=== PATIENT | male | born 1940 | race Caucasian/White ===

== ENCOUNTER 2017-10-20 20:21 | Emergency (ER) | payer OTHER ==
[2017-10-20 20:21] VITALS: BMI 21.9
[2017-10-20 21:15] LABS: BASO % 0.4 % (0.0-2.0); EOS # 0.2 K/uL (0.0-0.7); EOS % 3.9 % (0.0-4.0); HEMOGLOBIN 13.2 g/dL (12.0-18.0); LYMPH # 1.2 K/uL (1.0-4.3); LYMPH % 27.7 % (20.0-40.0); MEAN CORPUSCULAR HEMOGLOBIN 35.2 pg (27.0-31.0); MEAN CORPUSCULAR HGB CONC 34.9 g/dL (33.0-37.0); MEAN PLATELET VOLUME 9.2 fL (7.2-11.7); MONO # 0.9 K/uL (0.0-0.8); MONO % 20.8 % (0.0-10.0); NEUT % 47.2 % (50.0-75.0); PLATELET COUNT 155 K/uL (130-400); RBC 3.75 Mil/uL (4.40-5.90); RED CELL DISTRIBUTION WIDTH 13.6 % (11.5-14.5); WHITE BLOOD COUNT 4.3 K/uL (4.8-10.8)
[2017-10-20 21:19] LABS: MEAN CELL VOLUME 100.6 fL (80.0-94.0)
--- NOTE | 2017-10-20 21:19 | C.PDOC ---
History Of Present Illness 77 year old male, whose PMHx includes HTN and Hyperlipidemia, presents to the ED for evaluation of headache associated with elevated blood pressure for the past week. Patient is due for evaluation by his PMD but has not been able to schedule an appointment. Patient denies any other complaints at this time. Time Seen by Provider: 10/20/17 20:31 Chief Complaint (Nursing): High Blood Pressure History Per: Patient History/Exam Limitations: no limitations Onset/Duration Of Symptoms: Other (1 week ) Current Symptoms Are (Timing): Still Present Associated Symptoms: Headache. denies: Chest Pain, Blurred Vision, Focal Weakness Additional History Per: Patient Past Medical History Reviewed: Historical Data, Nursing Documentation, Vital Signs Vital Signs: Last Vital Signs Temp 98.2 F 10/20/17 22:33 Pulse 56 L 10/20/17 22:33 Resp 18 10/20/17 22:33 BP 126/54 L 10/20/17 22:33 Pulse Ox 100 10/21/17 21:46 - Medical History PMH: Bronchitis, Colonic Polyps (RESECTED X 2), COPD, Hypercholesterolemia, Obstructive Bowel Denies: Chronic Kidney Disease Surgical History: Appendectomy, Cholecystectomy - [facility] Procedures ENDOSC POLYPECTOMY OF LG INTEST (11/14/13) Family History: States: Unknown Family Hx - Social History Hx Tobacco Use: No Hx Alcohol Use: No Hx Substance Use: No - Immunization History Hx Tetanus Toxoid Vaccination: No Hx Influenza Vaccination: Yes Hx Pneumococcal Vaccination: Yes Review Of Systems Cardiovascular: Negative for: Chest Pain Neurological: Positive for: Headache Physical Exam - Physical Exam Appears: Non-toxic, No Acute Distress Skin: Normal Color, Warm, Dry Head: Atraumatic, Normacephalic Eye(s): bilateral: Normal Inspection Oral Mucosa: Moist Neck: Supple Chest: Symmetrical, No Deformity, No Tenderness Cardiovascular: Rhythm Regular, No Murmur Respiratory: Normal Breath Sounds, No Rales, No Rhonchi, No Wheezing Extremity: Normal ROM, Capillary Refill (less than 2 seconds ) Neurological/Psych: Oriented x3, Normal Speech, Normal Cognition ED Course And Treatment - Laboratory Results Result Diagrams: 10/20/17 21:11 10/20/17 21:35 ECG: Interpreted By Me, Viewed By Me ECG Rhythm: Sinus Rhythm Interpretation Of ECG: Normal Sinus Rhythm at rate 70bpm. Rate From EC O2 Sat by Pulse Oximetry: 100 (on RA) Pulse Ox Interpretation: Normal Medical Decision Making Medical Decision Making: suspeceted essential htn. ro urgency vs emergency Progress: Bloodwork, urinalysis, CT Head, EKG orderd and reviewed. labs ct neg neuro itact [facility]. [facility] Disposition - Disposition Referrals: Abran Moreno MD [Staff Provider] - Disposition: HOME/ ROUTINE Disposition Time: 21:00 Condition: STABLE Additional Instructions: please follow up with your doctor. return to er with worsening symptoms or concerns. Instructions: Headache, Adult, High Blood Pressure (DC) Forms: [employer] ([place] [employer]) - Clinical Impression Clinical Impression: Headache, High blood pressure - Scribe Statement The provider has reviewed the documentation as recorded by the Scribe (Jonelle Cardona) Provider Attestation: All medical record entries made by the Scribe were at my direction and personally dictated by me. I have reviewed the chart and agree that the record accurately reflects my personal performance of the history, physical exam, medical decision making, and the department course for this patient. I have also personally directed, reviewed, and agree with the discharge instructions and disposition.
[2017-10-20 21:29] LABS: INR 1.1; PROTHROMBIN TIME 11.6 SECONDS (9.7-12.2)
--- NOTE | 2017-10-20 21:44 | CT ---
EXAM: CT Head Without Intravenous Contrast CLINICAL HISTORY: 77 years old, male; Condition or disease; Headache; Headache not specified; Additional info: [employer]AC[employer]EN TECHNIQUE: Axial computed tomography images of the head/brain without intravenous contrast. All CT scans at this facility use one or more dose reduction techniques, viz.: automated exposure control; ma/kV adjustment per patient size (including targeted exams where dose is matched to indication; i.e. head); or iterative reconstruction technique. COMPARISON: No relevant prior studies available. FINDINGS: Brain: [id number] atrophy. No intracranial hemorrhage. No mass. Few scattered foci of decreased attenuation within periventricular/subcortical white matter. 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 No definite edema. Ventricles: No hydrocephalus. Bones/joints: No acute fracture. Degenerative changes of temporomandibular joints. Soft tissues: Unremarkable. Vasculature: Atherosclerotic disease of intracranial arteries. Sinuses: Scattered minimal to mild mucosal thickening. Mastoid air cells: No mastoid effusion. Orbits: Unremarkable as visualized. IMPRESSION: 1. Nonspecific white matter changes. Acute infarction may be CT occult within first 24 hours. If a focal deficit persists, consider followup CT or MRI for further evaluation. 2. Incidental/non-acute findings are described above.
[2017-10-20 21:53] LABS: ALB/GLOB RATIO 1.2 (1.0-2.1); ALBUMIN 3.6 g/dL (3.5-5.0); ALT/SGPT 38 U/L (21-72); AST/SGOT 38 U/L (17-59); BLOOD UREA NITROGEN 38 mg/dL (9-20); CALCIUM 9.2 mg/dl (8.6-10.4); GFR AFRICAN-AMERICAN > 60; GFR NON-AFRICAN AMERICAN > 60
[2017-10-20 21:55] LABS: URINE BILIRUBIN NEGATIVE (NEGATIVE); URINE CLARITY Clear (Clear); URINE COLOR Yellow (YELLOW); URINE GLUCOSE (UA) NORMAL (Normal); URINE LEUKOCYTE ESTERASE NEG Leu/uL (Negative); URINE PROTEIN NEGATIVE (NEGATIVE); URINE UROBILINOGEN NORMAL mg/dL (0.2-1.0)
[2017-10-20 21:56] LABS: URINE BLOOD NEGATIVE (NEGATIVE)
[2017-10-20 22:33] LABS: BANDS 3 % (0-2); EOSINOPHIL 4 % (0-4); LYMPHOCYTE 27 % (20-40); METAMYELOCYTE 2 % (0-0); MICROCYTOSIS SLIGHT; MONOCYTE 19 % (0-10); MYELOCYTE 1 % (0-0); NEUTROPHIL 44 % (50-75); PLATELET ESTIMATE NORMAL (NORMAL); TOTAL CELLS COUNTED 100
[2017-10-20 22:34] VITALS: BP 126/54; PULSE 56; RESP 18; TEMP 98.2
[2017-10-20 22:35] LABS: LARGE PLATELETS PRESENT
--- NOTE | 2017-10-21 19:25 | CARD ---
APPROVED REPORT EKG Measurement Heart [id number] <Conclusion> Normal sinus rhythm Left axis deviation Incomplete right bundle branch block Septal infarct, age undetermined Abnormal ECG
[2017-10-21 21:47] VITALS: O2SAT 100
== END 2017-10-20 22:33 | disposition home or self-care (01) ==
LOC: C.ER 20:21
DX: I10 Essential (primary) hypertension (principal); R51 Headache; E78.00 Pure hypercholesterolemia, unspecified

== ENCOUNTER 2018-02-08 12:12 | Emergency (ER) | payer OTHER ==
[2018-02-08 12:12] VITALS: BMI 21.9
[2018-02-08 12:21] VITALS: BP 147/76; PULSE 87; RESP 18; TEMP 98.3; O2SAT 100
[2018-02-08] MEDS ORDERED: Bacitracin 500 Units/gm Oint Foilpak UD ONE (12:35)
[2018-02-08] MEDS ORDERED: Bacitracin Ointment 30 GM TUBE TOP STA (12:42)
[2018-02-08] MEDS ORDERED: Tetanus/Diphtheria Toxoids 0.5 ml Syringe IM ONE (12:42)
--- NOTE | 2018-02-08 12:48 | C.PDOC ---
History Of Present Illness 77 y/o male presents to the ED for evaluation of wound he got yesterday after he closed the closet door on his right forearm. Pt notes the latch on the door hit his arm. The patient is concerned about the bruising that seemed to increase today. He admits to taking aspirin. The patient denies any pain to the arm, bruising else where, weakness, numbness, tingling or bloody stool. Time Seen by Provider: 02/08/18 12:23 Chief Complaint (Nursing): Wound Check History Per: Patient History/Exam Limitations: no limitations Onset/Duration Of Symptoms: Days Ago Current Symptoms Are (Timing): Still Present Location Of Injury: Right: Arm (forearm; dorsal aspect) Recent travel outside of the [place]: No Past Medical History Reviewed: Historical Data, Nursing Documentation, Vital Signs Vital Signs: Last Vital Signs Temp 98.3 F 02/08/18 12:18 Pulse 87 02/08/18 12:18 Resp 18 02/08/18 12:18 BP 147/76 02/08/18 12:18 Pulse Ox 100 02/08/18 13:02 - Medical History PMH: Bronchitis, Colonic Polyps (RESECTED X 2), COPD, Hypercholesterolemia, Obstructive Bowel Denies: Chronic Kidney Disease Surgical History: Appendectomy, Cholecystectomy - [facility] Procedures ENDOSC POLYPECTOMY OF LG INTEST (11/14/13) Family History: States: Unknown Family Hx - Social History Hx Tobacco Use: No Hx Alcohol Use: No Hx Substance Use: No - Immunization History Hx Tetanus Toxoid Vaccination: No Hx Influenza Vaccination: Yes Hx Pneumococcal Vaccination: Yes Review Of Systems Constitutional: Negative for: Fever Genitourinary: Negative for: Other (blood in stool) Musculoskeletal: Negative for: Arm Pain, Hand Pain Skin: Positive for: Bruising. Negative for: Lesions Neurological: Negative for: Weakness, Numbness, Other (tingling) Physical Exam - Physical Exam Appears: Well, Non-toxic, No Acute Distress Skin: Ecchymosis, Other (Superficial 2cm irregular V-shaped skin tear to dorsal aspect of forearm) Head: Atraumatic, Normacephalic Eye(s): bilateral: Normal Inspection, EOMI Nose: Normal Oral Mucosa: Moist Neck: Normal ROM, Supple Chest: Symmetrical Respiratory: No Accessory Muscle Use, Other (Speaking in full sentences) Extremity: Normal ROM, No Tenderness, Capillary Refill (<2 sec), No Swelling Pulses: Left Radial: Normal, Right Radial: Normal Neurological/Psych: Oriented x3, Normal Speech, Normal Motor (5/5 without pain) , Normal Sensation, Other (no focal deficits) ED Course And Treatment O2 Sat by Pulse Oximetry: 100 (RA) Pulse Ox Interpretation: Normal Progress Note: Bacitracin ointment placed over skin tear. Tetanus shot administered in ED. Discussed wound care and instructed to follow up with PMD in 1-2 days. Case discussed with Dr López who evaluated pt and agreed upon plan and discharge. Disposition - Disposition Disposition: HOME/ ROUTINE Disposition Time: 12:46 Condition: STABLE Additional Instructions: Keep area clean and dry. Watch for signs of infection including redness, swelling and discharge. Mantenga el elizabeth limpia y seca. Est atento a los signos de infeccin, incluyendo enrojecimiento, hinchazn y secrecin. Instructions: Wound Care (DC) Forms: [employer] [facility] ([place]) Print Language: BENGALI - Clinical Impression Clinical Impression: Skin tear - PA / HOME CHILD CARE PROVIDER / Resident Statement MD/DO has reviewed & agrees with the documentation as recorded. - Scribe Statement The provider has reviewed the documentation as recorded by the Scribe (Nanci Teixeira) All medical record entries made by the Scribe were at my direction and personally dictated by me. I have reviewed the chart and agree that the record accurately reflects my personal performance of the history, physical exam, medical decision making, and the department course for this patient. I have also personally directed, reviewed, and agree with the discharge instructions and disposition.
== END 2018-02-08 12:59 | disposition home or self-care (01) ==
LOC: C.ER 12:12
DX: S51.811A Laceration without foreign body of right forearm, initial encounter (principal); X58.XXXA Exposure to other specified factors, initial encounter; E78.00 Pure hypercholesterolemia, unspecified; Z23 Encounter for immunization